=== PATIENT | male | born 1980 | race Caucasian/White ===

== ENCOUNTER 2018-12-07 14:43 | Emergency (ER) | payer OTHER ==
[~2018-12-07] VITALS: Ht 188 cm; Wt 158.8 kg
[~2018-12-07 14:43] MED LIST: ALBU90OI INH; ATEN25 PO; BENZ100A PO; ESCI20 PO; Hydroxyzine HCl50 MG PO; IBUP800 PO; KETO10 PO; LISHYD2025 PO; PROCODE120 PO; PSEU120ER PO; Prednisone20 MG PO; Pseudoephedrine30 MG PO; SPACE CHAMBER1 EACH MC; TRAM50 PO; TRAZ100 PO; Vibramycin100 MG PO
[2018-12-07 15:38] LABS: BASOPHILS ABSOLUTE AUTO 0.07 K/mm3 (0.00-0.23); BASOPHILS PERCENT AUTO 1 % (0-2); EOSINOPHILS ABSOLUTE AUTO 0.17 K/mm3 (0.00-0.68); EOSINOPHILS PERCENT AUTO 1 % (0-6); Hematocrit 42.3 % (37.0-53.0); Hemoglobin 13.5 g/dL (13.5-17.5); IMMATURE GRAN ABSOLUTE AUTO 0.09 K/mm3 (0.00-0.10); IMMATURE GRAN PERCENT AUTO 1 % (0-1); LYMPHOCYTES ABSOLUTE AUTO 2.69 K/mm3 (0.84-5.20); LYMPHOCYTES PERCENT AUTO 19 % (21-46); MONOCYTES ABSOLUTE AUTO 1.25 K/mm3 (0.16-1.47); MONOCYTES PERCENT AUTO 9 % (4-13); Mean Corpuscular HGB 28.5 pg (26.0-34.0); Mean Corpuscular HGB Conc 31.9 g/dL (31.5-36.5); Mean Corpuscular Volume 89 fL (80-100); Mean Platelet Volume 9.3 fL (9.1-12.4); NEUTROPHILS ABSOLUTE AUTO 9.65 K/mm3 (1.96-9.15); NEUTROPHILS PERCENT AUTO 69 % (41-73); Platelet Count 268 K/mm3 (150-400); RDW Coefficient Variation 13.7 % (11.7-14.2); Red Blood Cell Count 4.74 M/mm3 (4.30-5.90); White Blood Cell Count 13.92 K/mm3 (4.00-11.30)
[2018-12-07 16:06] LABS: Alanine Aminotransfer (ALT/SGP 30 U/L (12-78); Albumin, Blood 3.3 g/dL (3.4-5.0); Albumin/Globulin Ratio 1.1 (0.8-1.8); Alk Phos 92 U/L (50-136); Anion Gap 6 mmol/L (6-16); Aspartate Aminotrans (AST/SGOT 10 U/L (12-37); Bilirubin, Total 0.5 mg/dL (0.1-1.0); Blood Urea Nitrogen 14 mg/dL (8-24); Bun/Creatinine Ratio 17.5 (12.0-20.0); CO2, Blood 30 mmol/L (21-32); Calcium, Blood 8.5 mg/dL (8.5-10.1); Chloride, Blood 99 mmol/L (98-108); Globulin, Blood 3.1 g/dL (2.2-4.0); Glomerular Filtration Rate >60 (60-); Glucose, Blood 113 mg/dL (70-99); Potassium, Blood 3.7 mmol/L (3.5-5.5); Sodium, Blood 135 mmol/L (136-145); Total Protein, Blood 6.4 g/dL (6.4-8.2); Troponin I <0.015 ng/mL (0.000-0.040)
[2018-12-07] MEDS ORDERED: IBUP800 PO (16:22)
[2018-12-07] MEDS ORDERED: ALBU90OI INH (16:54)
[2018-12-07] MEDS ORDERED: DOXY100 PO (16:54)
[2018-12-07] MEDS ORDERED: BENZ100A PO (16:54)
== END 2018-12-07 17:45 | disposition home or self-care (01) ==
LOC: ER 14:43
PROVIDERS: Physician Assistant
DX: J18.1 Lobar pneumonia, unspecified organism (principal); I10 Essential (primary) hypertension; F41.9 Anxiety disorder, unspecified; F17.210 Nicotine dependence, cigarettes, uncomplicated; Z88.0 Allergy status to penicillin; Z79.899 Other long term (current) drug therapy
CPT/HCPCS: 36415; 71046; 80053; 84484; 85025; 93005; 93010; 94640; 96365; 96375; 99284-25; J0696; J2930

== ENCOUNTER 2019-01-03 23:59 | Emergency (ER) | payer OTHER ==
[~2019-01-03] VITALS: Ht 188 cm; Wt 170.0 kg
[~2019-01-03 23:59] MED LIST changes: +DOXY100 PO
[2019-01-04 00:42] LABS: BASOPHILS ABSOLUTE AUTO 0.06 K/mm3 (0.00-0.23); BASOPHILS PERCENT AUTO 1 % (0-2); EOSINOPHILS ABSOLUTE AUTO 0.31 K/mm3 (0.00-0.68); EOSINOPHILS PERCENT AUTO 3 % (0-6); Hemoglobin 13.9 g/dL (13.5-17.5); IMMATURE GRAN PERCENT AUTO 1 % (0-1); LYMPHOCYTES ABSOLUTE AUTO 2.19 K/mm3 (0.84-5.20); LYMPHOCYTES PERCENT AUTO 19 % (21-46); MONOCYTES ABSOLUTE AUTO 1.13 K/mm3 (0.16-1.47); MONOCYTES PERCENT AUTO 10 % (4-13); Mean Corpuscular HGB 28.4 pg (26.0-34.0); Mean Corpuscular HGB Conc 30.9 g/dL (31.5-36.5); Mean Corpuscular Volume 92 fL (80-100); Mean Platelet Volume 9.1 fL (9.1-12.4); NEUTROPHILS ABSOLUTE AUTO 7.95 K/mm3 (1.96-9.15); NEUTROPHILS PERCENT AUTO 68 % (41-73); Platelet Count 254 K/mm3 (150-400); RDW Coefficient Variation 13.7 % (11.7-14.2); RDW Standard Deviation 47.2 fL (35.1-46.3); White Blood Cell Count 11.74 K/mm3 (4.00-11.30)
[2019-01-04 01:02] LABS: Troponin I <0.015 ng/mL (0.000-0.040)
[2019-01-04 01:03] LABS: Alanine Aminotransfer (ALT/SGP 30 U/L (12-78); Albumin, Blood 3.6 g/dL (3.4-5.0); Albumin/Globulin Ratio 1.2 (0.8-1.8); Alk Phos 110 U/L (50-136); Anion Gap 2 mmol/L (6-16); Aspartate Aminotrans (AST/SGOT 10 U/L (12-37); Bilirubin, Total 0.5 mg/dL (0.1-1.0); Blood Urea Nitrogen 14 mg/dL (8-24); Bun/Creatinine Ratio 18.5 (12.0-20.0); CO2, Blood 37 mmol/L (21-32); Calcium, Blood 8.6 mg/dL (8.5-10.1); Chloride, Blood 96 mmol/L (98-108); Creatinine, Blood 0.76 mg/dL (0.60-1.20); Glomerular Filtration Rate >60 (60-); Glucose, Blood 103 mg/dL (70-99); Potassium, Blood 3.8 mmol/L (3.5-5.5); Sodium, Blood 135 mmol/L (136-145); Total Protein, Blood 6.6 g/dL (6.4-8.2)
[2019-01-04] MEDS ORDERED: LEVO750 PO (01:10)
[2019-01-04] MEDS ORDERED: ERYT1OIN BOTHEYES (01:10)
== END 2019-01-04 01:39 | disposition home or self-care (01) ==
LOC: ER 23:59
PROVIDERS: Physician Assistant
DX: J18.9 Pneumonia, unspecified organism (principal); H10.9 Unspecified conjunctivitis; I10 Essential (primary) hypertension; F17.200 Nicotine dependence, unspecified, uncomplicated
CPT/HCPCS: 36415; 71045; 80053; 84484; 85025; 93005; 93010; 94640; 96374; 99285-25; J2930

== ENCOUNTER → 2020-08-12 | Outpatient (CLI) | payer OTHER ==
[~2020-08-12] MED LIST changes: +ABILIFY MYCITE5 M1 PO; +AMLO10 PO; +CYCL10 PO; +DICL75ER PO; +ERYT1OIN BOTHEYES; +IPRAT-ALBUT 0.5-3 ML NEB; +LEVO750 PO; -LISHYD2025 PO; +METO50 PO; +PRED20 PO; +ZESTORETIC 20-1 EAC2 PO
[2020-08-12 20:10] LABS: BASOPHILS ABSOLUTE AUTO 0.11 K/mm3 (0.00-0.23); BASOPHILS PERCENT AUTO 1 % (0-2); EOSINOPHILS ABSOLUTE AUTO 0.26 K/mm3 (0.00-0.68); EOSINOPHILS PERCENT AUTO 2 % (0-6); Hematocrit 46.8 % (37.0-53.0); Hemoglobin 14.3 g/dL (13.5-17.5); IMMATURE GRAN PERCENT AUTO 1 % (0-1); LYMPHOCYTES ABSOLUTE AUTO 3.02 K/mm3 (0.84-5.20); LYMPHOCYTES PERCENT AUTO 28 % (21-46); MONOCYTES ABSOLUTE AUTO 0.68 K/mm3 (0.16-1.47); MONOCYTES PERCENT AUTO 6 % (4-13); Mean Corpuscular HGB 28.4 pg (26.0-34.0); Mean Corpuscular HGB Conc 30.6 g/dL (31.5-36.5); Mean Corpuscular Volume 93 fL (80-100); Mean Platelet Volume 10.1 fL (9.1-12.4); NEUTROPHILS ABSOLUTE AUTO 6.51 K/mm3 (1.96-9.15); NEUTROPHILS PERCENT AUTO 61 % (41-73); Platelet Count 221 K/mm3 (150-400); RDW Coefficient Variation 13.8 % (11.7-14.2); RDW Standard Deviation 47.4 fL (35.1-46.3); Red Blood Cell Count 5.03 M/mm3 (4.30-5.90); White Blood Cell Count 10.68 K/mm3 (4.00-11.30)
[2020-08-12 20:27] LABS: Alanine Aminotransfer (ALT/SGP 40 U/L (12-78); Albumin, Blood 3.6 g/dL (3.4-5.0); Albumin/Globulin Ratio 1.3 (0.8-1.8); Alk Phos 118 U/L (50-136); Anion Gap 5 mmol/L (6-16); Aspartate Aminotrans (AST/SGOT 14 U/L (12-37); Bilirubin, Total 0.2 mg/dL (0.1-1.0); Blood Urea Nitrogen 19 mg/dL (8-24); Bun/Creatinine Ratio 25.4 (12.0-20.0); CHOL/HDL RATIO 2.7; CO2, Blood 34 mmol/L (21-32); Calcium, Blood 9.2 mg/dL (8.5-10.1); Chloride, Blood 100 mmol/L (98-108); Cholesterol 149 mg/dL (50-200); Creatinine, Blood 0.75 mg/dL (0.60-1.20); Globulin, Blood 2.7 g/dL (2.2-4.0); Glomerular Filtration Rate >60 (60-); Glucose, Blood 131 mg/dL (70-99); HDL Cholesterol 55 mg/dL (>39); LDL/HDL RATIO 1.3; Low Density Lipoprotein Chol 74 mg/dL (0-110); Potassium, Blood 4.1 mmol/L (3.5-5.5); Sodium, Blood 139 mmol/L (136-145); Total Protein, Blood 6.3 g/dL (6.4-8.2); Triglycerides 99 mg/dL (30-160); Very Low Density Lipoprot Chol 19 mg/dL (6-32)
== END | disposition home or self-care (01) ==
LOC: LAB SHORT 19:19 → LAB 19:19
PROVIDERS: Family Medicine
DX: I10 Essential (primary) hypertension (principal); R73.03 Prediabetes
CPT/HCPCS: 80053; 80061; 83036; 85025

== ENCOUNTER 2020-10-18 17:52 | Inpatient (IN) | payer OTHER ==
[~2020-10-18] VITALS: Ht 190.5 cm; Wt 176.2 kg
[~2020-10-18 17:52] MED LIST changes: -ABILIFY MYCITE5 M1 PO; -AMLO10 PO; -CYCL10 PO; -DICL75ER PO; -ESCI20 PO; -IPRAT-ALBUT 0.5-3 ML NEB; -METO50 PO; -PRED20 PO; -ZESTORETIC 20-1 EAC2 PO
[2020-10-18 18:25] LABS: PCO2 Arterial 68.5 mmHg (35-45); PO2 Arterial 47.7 mmHg (80-100); pH Blood Arterial 7.33 (7.35-7.45)
[2020-10-18 19:03] LABS: Influenza A, PCR NEGATIVE (NEGATIVE); Influenza B, PCR NEGATIVE (NEGATIVE); Resp Syncytial Virus, PCR NEGATIVE (NEGATIVE); SARS-Cov-2 (COVID-19) PCR, MMC NEGATIVE (NEGATIVE)
[2020-10-18 19:17] LABS: BASOPHILS ABSOLUTE AUTO 0.05 K/mm3 (0.00-0.23); BASOPHILS PERCENT AUTO 1 % (0-2); EOSINOPHILS ABSOLUTE AUTO 0.26 K/mm3 (0.00-0.68); EOSINOPHILS PERCENT AUTO 3 % (0-6); Hematocrit 47.1 % (37.0-53.0); Hemoglobin 14.5 g/dL (13.5-17.5); IMMATURE GRAN ABSOLUTE AUTO 0.08 K/mm3 (0.00-0.10); IMMATURE GRAN PERCENT AUTO 1 % (0-1); LYMPHOCYTES ABSOLUTE AUTO 1.49 K/mm3 (0.84-5.20); LYMPHOCYTES PERCENT AUTO 14 % (21-46); MONOCYTES ABSOLUTE AUTO 0.83 K/mm3 (0.16-1.47); MONOCYTES PERCENT AUTO 8 % (4-13); Mean Corpuscular HGB 28.2 pg (26.0-34.0); Mean Corpuscular HGB Conc 30.8 g/dL (31.5-36.5); Mean Corpuscular Volume 92 fL (80-100); NEUTROPHILS ABSOLUTE AUTO 7.86 K/mm3 (1.96-9.15); NEUTROPHILS PERCENT AUTO 74 % (41-73); Platelet Count 212 K/mm3 (150-400); RDW Coefficient Variation 13.7 % (11.7-14.2); RDW Standard Deviation 46.9 fL (35.1-46.3); Red Blood Cell Count 5.14 M/mm3 (4.30-5.90); White Blood Cell Count 10.57 K/mm3 (4.00-11.30)
[2020-10-18 19:32] LABS: International Normalized Ratio 1.02; Prothrombin Time Results 10.9 Sec (9.7-11.5)
[2020-10-18 19:36] LABS: Alanine Aminotransfer (ALT/SGP 42 U/L (12-78); Albumin/Globulin Ratio 1.3 (0.8-1.8); Alk Phos 141 U/L (50-136); Anion Gap 4 mmol/L (6-16); Aspartate Aminotrans (AST/SGOT 22 U/L (12-37); Bilirubin, Total 0.6 mg/dL (0.1-1.0); Blood Urea Nitrogen 12 mg/dL (8-24); CO2, Blood 35 mmol/L (21-32); Calcium, Blood 8.9 mg/dL (8.5-10.1); Chloride, Blood 96 mmol/L (98-108); Creatinine, Blood 0.71 mg/dL (0.60-1.20); Glomerular Filtration Rate >60 (60-); Glucose, Blood 124 mg/dL (70-99); Sodium, Blood 135 mmol/L (136-145); Troponin I <0.015 ng/mL (0.000-0.040)
[2020-10-18 20:08] LABS: Source, Urine Catheter
[2020-10-18 20:18] LABS: Appearance, Urine Clear (Clear); Bilirubin, Urine Neg (Neg); Blood, Urine Neg (Neg); Color, Urine Yellow (P-Yellow); Glucose Qualitative, Urine Neg (Neg); Ketones, Urine Neg (Neg); Leukocyte Esterase, Urine Neg (Neg); Nitrite, Urine Neg (Neg); Protein, Urine Neg (Neg); Urobilinogen, Urine NORM (Normal)
[2020-10-18] MEDS ORDERED: ZESTORETIC 20-1 EAC2 PO (20:40)
[2020-10-18] MEDS ORDERED: ESCI20 PO (20:41)
[2020-10-18] MEDS ORDERED: ALBU90OI INH (20:42)
[2020-10-18] MEDS ORDERED: CYCL10 PO (20:43)
[2020-10-18] MEDS ORDERED: METO50 PO (20:44)
[2020-10-18] MEDS ORDERED: DICL75ER PO (20:45)
[2020-10-18] MEDS ORDERED: ABILIFY MYCITE5 M1 PO (20:56)
[2020-10-18] MEDS ORDERED: IPRAT-ALBUT 0.5-3 ML NEB (20:56)
[2020-10-19 03:42] LABS: BASOPHILS ABSOLUTE AUTO 0.04 K/mm3 (0.00-0.23); BASOPHILS PERCENT AUTO 0 % (0-2); EOSINOPHILS ABSOLUTE AUTO 0.01 K/mm3 (0.00-0.68); EOSINOPHILS PERCENT AUTO 0 % (0-6); Hematocrit 45.1 % (37.0-53.0); IMMATURE GRAN ABSOLUTE AUTO 0.11 K/mm3 (0.00-0.10); IMMATURE GRAN PERCENT AUTO 1 % (0-1); LYMPHOCYTES ABSOLUTE AUTO 0.73 K/mm3 (0.84-5.20); LYMPHOCYTES PERCENT AUTO 7 % (21-46); MONOCYTES ABSOLUTE AUTO 0.21 K/mm3 (0.16-1.47); MONOCYTES PERCENT AUTO 2 % (4-13); Mean Corpuscular Volume 93 fL (80-100); Mean Platelet Volume 9.9 fL (9.1-12.4); NEUTROPHILS PERCENT AUTO 90 % (41-73); Platelet Count 188 K/mm3 (150-400); RDW Coefficient Variation 13.7 % (11.7-14.2); RDW Standard Deviation 46.7 fL (35.1-46.3); Red Blood Cell Count 4.83 M/mm3 (4.30-5.90)
[2020-10-19 04:01] LABS: Anion Gap 2 mmol/L (6-16); Blood Urea Nitrogen 12 mg/dL (8-24); Bun/Creatinine Ratio 20.9 (12.0-20.0); CO2, Blood 35 mmol/L (21-32); Calcium, Blood 8.5 mg/dL (8.5-10.1); Chloride, Blood 97 mmol/L (98-108); Creatinine, Blood 0.57 mg/dL (0.60-1.20); Glomerular Filtration Rate >60 (60-); Glucose, Blood 238 mg/dL (70-99); Potassium, Blood 4.8 mmol/L (3.5-5.5); Sodium, Blood 134 mmol/L (136-145)
[2020-10-19 05:38] LABS: PCO2 Arterial > 105 mmHg (35-45); PO2 Arterial 114 mmHg (80-100); pH Blood Arterial 7.13 (7.35-7.45)
--- NOTE | 2020-10-19 05:54 | NUR ---
CRITICAL LAB RT NOTIFIED OF CRITICAL LAB FROM ABG: C02 >105 AND Ph 7.13. CALL PLACED TO MD ALLEN. MD ALLEN W/ ORDERS TO INCREASE BIPAP SETTINGS AND REPEAT ABG IN 4 HOURS.
--- NOTE | 2020-10-19 06:00 | NUR ---
SHIFT SUMMARY UPON ARRIVAL TO UNIT, PT A&OX4. SP02>90% ON NC. PT ATTEMPTED BIPAP BUT COULD NOT TOLERATE, TOOK OFF MASK MULTIPLE TIMES. PT ALSO PULLED OFF TELEMETRY STICKERS MULTIPLE TIMES. TOWARDS END OF SHIFT, PT BECAME AND IS CURRENTLY LETHARGIC, OBTUNDED. PT PLACED ON BIPAP AND ABG DONE, RESULTING IN CRITICAL VALUES, SEE PREVIOUS NOTE. TELEMETRY READS ST, HR 100'S. PT USED URINAL AT BEDSIDE AND UP TO BSC SBA TO ATTEMPT A BM UNSUCCESSFULLY. ABX INFUSED THIS SHIFT. CALL LIGHT IN REACH. BED ALARM ON. WILL GIVE REPORT TO ONCOMING NURSE.
--- NOTE | 2020-10-19 07:00 | NUR ---
PT UPDATE AT APPROX 0600 PT REMOVED BIPAP, TELEMETRY CORDS, SPO2 PROBE. RN ATTEMPTED TO PLACE BIPAP MASK ON, PT PUSHED AWAY WITH HANDS, REFUSED MASK. RN ATTEMPTED TO PLACE NC ON PT. PT REMOVED NC. CALL PLACED TO RT. RT IN ROOM W/ RN. PT NOT ACKNOWLEDGING QUESTIONS. PT CONTINUED TO NOT ALLOW OXYGEN THERAPY. PT VOIDED ALL OVER BED. RT WITH RECOMMENDATION FOR ICU FOR ADEQUATE OXYGEN THERAPY. CALL PLACED TO MD ALLEN. MD ALLEN WITH ORDERS FOR ICU TRANSFER. PT TAKEN TO ICU AT APPROX 0700, REPORT GIVEN TO ICU NURSE DURING TIME OF XFER.
--- NOTE | 2020-10-19 07:41 | NUR ---
PT TRANSFERED FROM PCU TO ICU AT 0700 THIS AM. PT OBTUNDED ON N/C. PT TRANSFERED TO BED USING LIFT. BIPAP IMMEDIATELY PLACED; 17/07, SATS >90%. PT BREATHING SHALLOW PRIOR TO BIPAP BUT PULLLING TV >400 NOW. A POWERGLIDE AND PERIPHERAL IV STARTED, PT DID NOT RESPOND TO THESE. EYES OPENED BRIEFLY WHEN TIGHTENING BIPAP MASK, PT DOES NOT AROUSE OTHERWISE. DR DELGADO CONSULTED AND CALLED AT 0700. ROTHMAN CATH PLACED W/O DIFFICULTY. RESTRAINTS PLACED PT AWOKE IN PCU AND TORE OFF MASK. DR DELGADO AT BEDSIDE NOW. ABG TO BE REPEATED AT 0800. PT MAY REQUIRE INTUBATION.
[2020-10-19 08:01] LABS: Source, Urine Catheter
[2020-10-19 08:05] LABS: Appearance, Urine Clear (Clear); Bilirubin, Urine Neg (Neg); Blood, Urine 1+ (Neg); Color, Urine Yellow (P-Yellow); Glucose Qualitative, Urine Neg (Neg); Ketones, Urine Neg (Neg); Leukocyte Esterase, Urine Neg (Neg); Nitrite, Urine Neg (Neg); Protein, Urine 1+ (Neg); Specific Gravity, Urine 1.025 (1.003-1.022); Urobilinogen, Urine NORM (Normal)
[2020-10-19 08:21] LABS: White Blood Cells, Urine 0-2 /hpf (0-5)
[2020-10-19 08:22] LABS: Bacteria Rare /hpf; Red Blood Cells, Urine 0-2 /hpf (0-2); Squamous Epithelial Cells Rare /hpf (Few)
[2020-10-19 08:45] LABS: PO2 Arterial 67.3 mmHg (80-100)
[2020-10-19 08:46] LABS: PCO2 Arterial > 105 mmHg (35-45); pH Blood Arterial 7.16 (7.35-7.45)
--- NOTE | 2020-10-19 09:59 | NUR ---
REPEAT ABG CONT TO SHOW RESP FAILURE WITHOUT IMPROVEMENT. DR DELGADO INTUBATED PT AT 0915. PT WAS DIFFICULT TO INTUBATE; ER DR AT BEDSIDE TO ASSIST. VERSED AND PROPOFOL INITIALLY USED TO INTUBATED. SUCCS 200 GIVEN PER ER . PT SHORTLY INTBATED AFTER SUCCS GIVEN. ETT 8.0, INITIALLY AT 27CM, THEN ADVANCED 2CM TO 29CM POST XRAY PER DR DELGADO. OGT PLACED TO LIS. LUNGS COARSE T/O, SATS 100%. VENT AC16/550/100%/8. DARK PEREZ SPUTUM SAMPLE SENT. PROPOFOL GTT AT 50MCG, NS STARTED AT 75CC/HR.
[2020-10-19 10:24] LABS: U Amphetamine Screen Not Detected; U Barbituate Screen Not Detected; U Benzodiazapine Screen Not Detected; U Buprenorphine Screen Not Detected; U Cannabinoids Screen Not Detected; U Cocaine Screen Not Detected; U Methadone Screen Not Detected; U Methamphetamine Screen Not Detected; U Opiates Screen Not Detected; U Oxycodone Screen Not Detected; U Phencyclidine Screen Not Detected; U Propoxyphene Screen Not Detected
--- NOTE | 2020-10-19 11:34 | NUR ---
PT GIVEN FULL BEDBATH. YEAST NOTED TO ALL FOLDS. NYSTATIN ORDERED. PILLOW CASES PLACED UNDER FOLDS. BP HAD BEEN HYPERTENSIVE BUT NOW TRENDING DOWN, MAP REMAINS >65. PT'S BROTHER WHOM IS LISTED EMERGENCY CONTACT WAS UPDATED VIA PHONE.
[2020-10-19 11:47] LABS: PO2 Arterial 430 mmHg (80-100)
[2020-10-19 11:48] LABS: PCO2 Arterial 79.5 mmHg (35-45); pH Blood Arterial 7.26 (7.35-7.45)
--- NOTE | 2020-10-19 17:42 | NUR ---
PT REMAINS ON PROPOFOL AT 50MCG, VENT SETTINGS; AC16/550/60%/8. PT BREATHING RIGHT AROUND 16. VERY THICK DARK PEREZ SECRETIONS SX'D FROM ETT W EVERY TURN. LUNGS REMAINS COARSE T/O, VSS. BROTHER AT BEDSIDE AND GIVEN UPDATE.
--- NOTE | 2020-10-19 19:59 | NUR ---
PATIENT INTUBATED AND SEDATED WITH PROPOFOL 50 MCG, VENT SET AT AC 16, TV 550, PEEP 8, FIO2 60% PATIENT GRIMACING AND PULLING ON RESTRAINTS WITH ORAL CARE AND REPOSITIONING. OCCASIONALLY WIGGLING HIS FEET BACK AND FORTH. KEEPING EYES CLOSED, AND RESISTANT TO HAVING THEM OPENED FOR PUPIL CHECK. FENTANYL GIVEN TO HELP PATIENT ALYCIA ETT. OG REMAINS IN PLACE WITH SMALL AMT OF BROWN/GREEN BILE IN TUBE, OG FLUSHED AND CLAMPED. ROTHMAN DRAINING HAZY YELLOW URINE WITH WHITE SEDIMENT SEEN.
--- NOTE | 2020-10-20 00:15 | NUR ---
DOCTOR SANDY NOTIFIED OF ELEVATED GLUCOSE WITH Q6 CBG. ORDER OBTAINED FOR MEDIUM SLIDING SCALE
[2020-10-20 03:39] LABS: BASOPHILS ABSOLUTE AUTO 0.01 K/mm3 (0.00-0.23); BASOPHILS PERCENT AUTO 0 % (0-2); EOSINOPHILS PERCENT AUTO 0 % (0-6); Hematocrit 40.5 % (37.0-53.0); Hemoglobin 12.5 g/dL (13.5-17.5); IMMATURE GRAN ABSOLUTE AUTO 0.09 K/mm3 (0.00-0.10); IMMATURE GRAN PERCENT AUTO 1 % (0-1); LYMPHOCYTES ABSOLUTE AUTO 0.96 K/mm3 (0.84-5.20); LYMPHOCYTES PERCENT AUTO 11 % (21-46); MONOCYTES ABSOLUTE AUTO 0.63 K/mm3 (0.16-1.47); MONOCYTES PERCENT AUTO 7 % (4-13); Mean Corpuscular HGB 28.5 pg (26.0-34.0); Mean Corpuscular HGB Conc 30.9 g/dL (31.5-36.5); Mean Corpuscular Volume 93 fL (80-100); NEUTROPHILS PERCENT AUTO 81 % (41-73); Platelet Count 202 K/mm3 (150-400); RDW Coefficient Variation 13.5 % (11.7-14.2); RDW Standard Deviation 46.3 fL (35.1-46.3); Red Blood Cell Count 4.38 M/mm3 (4.30-5.90); White Blood Cell Count 8.89 K/mm3 (4.00-11.30)
[2020-10-20 04:00] LABS: Albumin, Blood 3.1 g/dL (3.4-5.0); Anion Gap 2 mmol/L (6-16); Blood Urea Nitrogen 21 mg/dL (8-24); Bun/Creatinine Ratio 32.7 (12.0-20.0); CO2, Blood 35 mmol/L (21-32); Calcium, Blood 8.1 mg/dL (8.5-10.1); Chloride, Blood 97 mmol/L (98-108); Creatinine, Blood 0.64 mg/dL (0.60-1.20); Glomerular Filtration Rate >60 (60-); Glucose, Blood 293 mg/dL (70-99); Phosphorus, Blood 3.7 mg/dL (2.5-4.9); Potassium, Blood 4.9 mmol/L (3.5-5.5); Sodium, Blood 134 mmol/L (136-145)
--- NOTE | 2020-10-20 05:55 | NUR ---
SUMMARY PATIENT REMAINS INTUBATED AND SEDATED. NO CHANGES TO VENT SETTINGS SUCTIONING SMALL AMTS OF THICK PEREZ SPUTUM VIA ETT. COPIOUS ORAL SECRETIONS MORESO WHEN MORE AWAKE, FREQUENT ORAL SUCTIONING DONE T/O NIGHT. PROPOFOL 50 MCG CONTINUES FOR SEDATION, VERSED GIVEN ONCE FOR AGITATION AND COUGHING, MOVING ALL 4 EXTREMITIES BUT NOT FOLLOWING DIRECTIONS. FENTANYL IV GIVEN SEVERAL TIMES DURING THE NIGHT FOR GRIMACING AND INCREASED RESP. OG REMAINS IN PLACE AND CLAMPED. ROTHMAN CONTINUES TO DRAIN HAZY YELLOW URINE WITH PINK/WHITE SEDIMENT.
--- NOTE | 2020-10-20 11:04 | NUR ---
ASSUMED CARE OF PT, REPORT RCV'D FROM CORNELL MACEDO. PT INTUBATED AND SEDATED. VENT SETTINGS AC 16/550/8/50%. PROPOFOL DECREASED FROM 50 MCG/KG/MIN TO 45 MCG/KG/MIN. PT FAILS TO OPEN EYES WITH VERBAL STIMULATION, DOES NOT FOLLOW COMMANDS. FACIAL GRIMACING WITH PAINFUL STIMULI AND PT TURNS HEAD AWAY FROM ORAL CARE. BILATERAL SOFT WRIST RESTRAINTS TO PREVENT ACCIDENTAL EXTUBATION. LUNG SOUNDS COARSE WITH EXP WHEEZE. OGT CLAMPED, ORDER PLACE TO BEGIN TF. ROTHMAN PATENT AND DRAINING TO GRAVITY. SEE FULL SHIFT ASSESSMENT.
--- NOTE | 2020-10-20 18:44 | NUR ---
SHIFT SUMMARY NO ACUTE CHANGES THROUGH OUT SHIFT. PT REMAINS INTUBATED AND SEDATED. VENT SETTINGS AC 16/550/8/50%. PROPOFOL @ 40 MCG/KG/MIN. PT MOVES ALL EXTREMETIES WEAKLY, SLOWLY REACHES FOR TUBE WHEN UNRESTRAINED, FACIAL GRIMACING WITH NOXIOUS STIMULI. PT FAILS TO FOLLOW COMMANDS AT THIS TIME. LUNG SOUNDS REMAIN COARSE WITH WHEEZE, MODERATE AMOUNT OF THICK GREEN/BROWN SPUTUM FROM ETT AND RIGHT NARE. VITAL HIGH PROTEIN STARTED AT GOAL RATE OF 20 ML/HR WITH 30 ML Q4 FLUSH. 600 ML URINARY OUTPUT, URINE GREEN TINGED WITH MODERATE SEDIMENT. TMAX 99.0, ALL ADDITIONAL VSS. WILL REPORT TO ONCOMING NURSE.
--- NOTE | 2020-10-20 18:57 | NUR ---
Per admit trigger, I was tasked to meet with Mr. Mccoy to offer education about advanced care planning. He is on a vent and sedated. No family. Left AD packet on bedside table and will continue to attempt visit in coming days.
--- NOTE | 2020-10-20 20:03 | NUR ---
PATIENT REMAINS INTUBATED AND SEDATED. PROPOFOL 40 MCG, FENTANYL NEEDED. COUGHING AND REACHING UP TO ETT WHEN AWAKE. OCCASIONALLY SHAKING BOTH FEET BACK AND FORTH. NOT OPENING EYES AND NOT FOLLOWING DIRECTIONS. ETT IN PLACE WITH VENT SET AT AC 16, TV 550, PEEP 8, FIO2 50% SUCTIONING THICK CREAMY LOOKING SPUTUM VIA ETT. OG IN PLACE WITH TUBE FEEDING AT GOAL RATE OF 20 CC/HR WITH VITAL HP.
[2020-10-21 04:27] LABS: BASOPHILS ABSOLUTE AUTO 0.02 K/mm3 (0.00-0.23); BASOPHILS PERCENT AUTO 0 % (0-2); EOSINOPHILS ABSOLUTE AUTO 0.08 K/mm3 (0.00-0.68); EOSINOPHILS PERCENT AUTO 1 % (0-6); Hematocrit 41.7 % (37.0-53.0); Hemoglobin 12.7 g/dL (13.5-17.5); IMMATURE GRAN ABSOLUTE AUTO 0.12 K/mm3 (0.00-0.10); IMMATURE GRAN PERCENT AUTO 1 % (0-1); LYMPHOCYTES ABSOLUTE AUTO 1.12 K/mm3 (0.84-5.20); LYMPHOCYTES PERCENT AUTO 11 % (21-46); MONOCYTES ABSOLUTE AUTO 0.65 K/mm3 (0.16-1.47); MONOCYTES PERCENT AUTO 7 % (4-13); Mean Corpuscular HGB 28.2 pg (26.0-34.0); Mean Corpuscular HGB Conc 30.5 g/dL (31.5-36.5); Mean Corpuscular Volume 93 fL (80-100); Mean Platelet Volume 10.1 fL (9.1-12.4); NEUTROPHILS ABSOLUTE AUTO 8.05 K/mm3 (1.96-9.15); NEUTROPHILS PERCENT AUTO 80 % (41-73); NRBC ABSOLUTE 0.02 K/mm3 (0.00-0.02); NRBC Auto 0.2 /100 WBC (0.0-0.2); Platelet Count 239 K/mm3 (150-400); RDW Standard Deviation 48.1 fL (35.1-46.3); Red Blood Cell Count 4.51 M/mm3 (4.30-5.90); White Blood Cell Count 10.04 K/mm3 (4.00-11.30)
[2020-10-21 04:43] LABS: Albumin, Blood 3.1 g/dL (3.4-5.0); Anion Gap 3 mmol/L (6-16); Blood Urea Nitrogen 29 mg/dL (8-24); Bun/Creatinine Ratio 45.5 (12.0-20.0); CO2, Blood 34 mmol/L (21-32); Calcium, Blood 8.2 mg/dL (8.5-10.1); Chloride, Blood 98 mmol/L (98-108); Creatinine, Blood 0.64 mg/dL (0.60-1.20); Glomerular Filtration Rate >60 (60-); Glucose, Blood 298 mg/dL (70-99); Phosphorus, Blood 3.7 mg/dL (2.5-4.9); Potassium, Blood 4.6 mmol/L (3.5-5.5); Sodium, Blood 135 mmol/L (136-145); Triglycerides 181 mg/dL (30-160)
--- NOTE | 2020-10-21 05:00 | NUR ---
AFTER BED BATH COMPLETE, ROTHMAN BAG CHANGED DUE TO SEDIMENT CLINGING TO LINING OF THE BAG, AND TO MAKE IT EASIER TO EVALUATE THE URINE.
--- NOTE | 2020-10-21 06:49 | NUR ---
SUMMARY PATIENT REMAINS INTUBATED AND SEDATED. PROPOFOL TITRATED TO 45 MCG, FENTANYL IV GIVEN NEEDED T/O NIGHT TO HELP PATIENT ALYCIA VENT. VENT SET AT AC 16, TV 550, PEEP 8, FIO2 50% SUCTIONING THICK PEREZ SPUTUM VIA ETT. PATIENT HAVING LARGE PEREZ NASAL SECRETION ONCE DURING THE NIGHT. OG WITH VITAL HP AT GOAL RATE 20 CC/HR WITH MOD AMT OF RESIDUALS T/O NIGHT.
--- NOTE | 2020-10-21 08:30 | NUR ---
ASSESSMENT- PT SEDATED WTIH PROPOFOL AT 45 MCG/KG/MIN, INCREASED TO 50 MCG/KG/MIN FOR RESTLESSNESS, ATTEMPTING TO PULL AT TUBES. EXPLAINED PLAN OF CARE. TURNED AND LINEN CHANGE DONE, REPOSITIONED FOR COMFORT. NSR, BP STABLE. LEFT ARM POWER GLIDE DI, PIV X 2 INTACT. ABDOMEN LARGE, OBESE, SOFT. TUBE FEEDING VITAL HIGH PROTEIN AT 20 CC/HR, RESIDUAL 25 CC REPLACED. UO ADEQUATE VIA ROTHMAN. POWDER TO SKIN FOLDS. BILATERAL WRIST RESTRAINTS FOR SAFETY, EXTUBATION RISK. RODRIGUEZ.
--- NOTE | 2020-10-21 10:54 | NUR ---
PT REACHING FOR TUBES, RESTLESS. REPOSITIONED, PROPOFOL INCREASED TO 60 MCG/KG/MIN WITH IMPROVEMENT
--- NOTE | 2020-10-21 11:57 | NUR ---
PT AGITATED, REPOSITIONED. RX WITH FENTANYL AND PROPOFOL INCREASED FOR SEDATION. DR. SHAVONNE GORE-UPDATED. NSR. BP STABLE. TUBE FEED RESIDUAL 125 CC-REPLACED.
--- NOTE | 2020-10-21 13:08 | NUR ---
PT SEDATED, CALM, TOLERATING VENT
--- NOTE | 2020-10-21 16:10 | NUR ---
VSS. BEDSIDE ECHO BEING DONE. REPOSITIONED, RX WITH FENTANYL FOR GRIMACING WITH IMPROVEMENT
--- NOTE | 2020-10-21 17:16 | NUR ---
Echocardiogram using 0.60ml of Definity contrast performed by Jacinta Varner under my supervision.
--- NOTE | 2020-10-21 18:30 | NUR ---
Spiritual care note: Tried again today to meet with Mr. Mccoy and speak to im about advanced care planning. He remains unresponsive and ventilated. No family presnt throughout visiting hours.
--- NOTE | 2020-10-21 18:45 | NUR ---
REMAINS ON VENT WITHOUT PROBLEMS. SEDATED WITH PROPOFOL AT 55 MCG/KG/MIN. VSS. REPOSITIONED. TOLERATING TUBE FEEDINGS. NO BM. PIV X 2 INTACT, POWER GLIDE INTACT. UO GOOD VIA ROTHMAN. BILATERAL WRIST RESTRAINTS-EXTUBATION RISK. NSR.
--- NOTE | 2020-10-21 19:45 | NUR ---
PATIENT REMAINS INTUBATED AND SEDATED, PROPOFOL 55 MCG. VENT SET AT AC 16, TV 550, PEEP 8, FIO2 50% WHEN AWAKE COUGHING AND GAGGING ON TUBE, REACHING UP TO ETT WITH BOTH HANDS. LARGE AMT OF PEREZ/YELLOW NASAL SECRETIONS, DEVELOPED BLOODY NOSE TO RIGHT TOVAR WITH SUCTIONING THE NASAL SECRETIONS. OG IN PLACE WITH VITAL HP AT GOAL RATE OF 20 CC/HR
[2020-10-22 05:07] LABS: BASOPHILS ABSOLUTE AUTO 0.02 K/mm3 (0.00-0.23); BASOPHILS PERCENT AUTO 0 % (0-2); EOSINOPHILS PERCENT AUTO 0 % (0-6); Hematocrit 41.2 % (37.0-53.0); Hemoglobin 12.6 g/dL (13.5-17.5); IMMATURE GRAN ABSOLUTE AUTO 0.11 K/mm3 (0.00-0.10); IMMATURE GRAN PERCENT AUTO 1 % (0-1); LYMPHOCYTES ABSOLUTE AUTO 1.25 K/mm3 (0.84-5.20); LYMPHOCYTES PERCENT AUTO 15 % (21-46); MONOCYTES ABSOLUTE AUTO 0.74 K/mm3 (0.16-1.47); MONOCYTES PERCENT AUTO 9 % (4-13); Mean Corpuscular HGB 27.9 pg (26.0-34.0); Mean Corpuscular HGB Conc 30.6 g/dL (31.5-36.5); Mean Corpuscular Volume 91 fL (80-100); Mean Platelet Volume 9.7 fL (9.1-12.4); NEUTROPHILS ABSOLUTE AUTO 6.18 K/mm3 (1.96-9.15); NEUTROPHILS PERCENT AUTO 75 % (41-73); Platelet Count 227 K/mm3 (150-400); RDW Coefficient Variation 13.9 % (11.7-14.2); RDW Standard Deviation 47.3 fL (35.1-46.3); Red Blood Cell Count 4.52 M/mm3 (4.30-5.90)
[2020-10-22 05:19] LABS: PCO2 Arterial 59.5 mmHg (35-45); pH Blood Arterial 7.41 (7.35-7.45)
[2020-10-22 05:40] LABS: Albumin, Blood 3.1 g/dL (3.4-5.0); Anion Gap 2 mmol/L (6-16); Blood Urea Nitrogen 28 mg/dL (8-24); Bun/Creatinine Ratio 53.3 (12.0-20.0); CO2, Blood 34 mmol/L (21-32); Calcium, Blood 7.9 mg/dL (8.5-10.1); Chloride, Blood 97 mmol/L (98-108); Creatinine, Blood 0.53 mg/dL (0.60-1.20); Glomerular Filtration Rate >60 (60-); Glucose, Blood 327 mg/dL (70-99); Phosphorus, Blood 3.8 mg/dL (2.5-4.9); Sodium, Blood 133 mmol/L (136-145)
--- NOTE | 2020-10-22 06:30 | NUR ---
SUMMARY PATIENT REMAINS INTUBATED AND SEDATED WITH PROPOFOL 50 MCG, AND FENTANYL NEEDED. VENT AC 16, TV 550, PEEP 8, FIO2 50% SUCTIONING THICK PEREZ SPUTUM VIA ETT AND RIGHT NOSTRIL. SMALL NOSE BLEED TWICE DURING THE NIGHT. OG WITH TUBE FEEDING VITAL HP AT GOAL RATE OF 20 CC/HR WITH APROX 100 CC OF RESIDUAL. WHEN AWAKE MOVES ALL EXTREMITIES BUT CONTINUES TO NOT FOLLOW DIRECTIONS.
--- NOTE | 2020-10-22 08:55 | NUR ---
CARE OF PT ASSUMED AT 0700. PT SEDATED ON PROPFOL AT 50MCG FOR MECH VENT. PT RESTFUL AND SLEEPING, GRIMACES TO NOXIOUS STIMULI, COUGHS W SUCTION. DARK PEREZ SECRETIONS FROM ETT. PT W SCATTERED WHEEZES AND COARSE T/O. SATS >92%: AC16/550/50%/8. DR HARRIS IN THIS AM, PT TO RECEIVED ADDITIONAL INSULIN Q6 WITH AN INCREASE IN LONG ACTING INSULIN. 120CC RESIDUAL.
--- NOTE | 2020-10-22 10:13 | NUR ---
PROPOFOL OFF FOR 2MIN; PT WIDE AWAKE, COUGHING ON VENT W HIGH PEAK PRESSURES. PT ABLE TO FOLLOW COMMANDS. NODS YES TO PAIN. PROPOFOL RESUMED. FENT 100MCG GIVEN TO PT.
--- NOTE | 2020-10-22 10:26 | NUR ---
DR FLANAGAN IN TO SEE PT; PT TO BE DIURESED. FULL UPDATE GIVEN
--- NOTE | 2020-10-22 11:26 | NUR ---
PT WILL NOT RECEIVE DIURETICS PER DR FLANAGAN D/T ECHO RESULTS; LOPRESSOR TO BE INCREASED.
--- NOTE | 2020-10-22 12:23 | NUR ---
NO CHNAGES FROM PRIOR ASSESSMENT
--- NOTE | 2020-10-22 14:00 | NUR ---
PT COUGHING ON VENT, EYES OPEN, GRIMACING. PT NODS YES TO PAIN; FENT 100MCG GIVEN.
--- NOTE | 2020-10-22 15:55 | NUR ---
PT WOKE UP VERY AGITATED, UNABLE TO REDIRECT, UNABLE TO FOLLOW COMMANDS, REACHING FORCFULLY TOWARDS ETT. ATIVAN 1MG IVP GIVEN. PROPOFOL INCREASED TO 60MCG
--- NOTE | 2020-10-22 18:00 | NUR ---
BLOOD SUGARS >300 DESPITE INCREASE IN SQ INSULIN. DR FLANAGAN NOTIFIED. INSULIN GTT TO BE STARTED.
--- NOTE | 2020-10-22 19:30 | NUR ---
ASSUMPTION OF CARE RECEIVED REPORT FROM MARGUERITE SARABIA AND ASSUMED CARE OF PATIENT. PT INTUBATED, SEDATED. TKO NS, PROPOFOL AT 60MCG. TUBE FEED RUNNING AT 20. ROTHMAN CATHETER PATENT AND DRAINING. VITALS STABLE.
[2020-10-23 04:22] LABS: BASOPHILS ABSOLUTE AUTO 0.01 K/mm3 (0.00-0.23); BASOPHILS PERCENT AUTO 0 % (0-2); EOSINOPHILS PERCENT AUTO 0 % (0-6); Hematocrit 42.5 % (37.0-53.0); Hemoglobin 13.5 g/dL (13.5-17.5); IMMATURE GRAN ABSOLUTE AUTO 0.17 K/mm3 (0.00-0.10); IMMATURE GRAN PERCENT AUTO 2 % (0-1); LYMPHOCYTES ABSOLUTE AUTO 1.46 K/mm3 (0.84-5.20); LYMPHOCYTES PERCENT AUTO 16 % (21-46); MONOCYTES ABSOLUTE AUTO 0.74 K/mm3 (0.16-1.47); MONOCYTES PERCENT AUTO 8 % (4-13); Mean Corpuscular HGB 28.4 pg (26.0-34.0); Mean Corpuscular HGB Conc 31.8 g/dL (31.5-36.5); Mean Corpuscular Volume 89 fL (80-100); Mean Platelet Volume 9.6 fL (9.1-12.4); NEUTROPHILS ABSOLUTE AUTO 6.98 K/mm3 (1.96-9.15); NEUTROPHILS PERCENT AUTO 75 % (41-73); Platelet Count 227 K/mm3 (150-400); RDW Coefficient Variation 13.5 % (11.7-14.2); RDW Standard Deviation 44.4 fL (35.1-46.3); Red Blood Cell Count 4.76 M/mm3 (4.30-5.90); White Blood Cell Count 9.36 K/mm3 (4.00-11.30)
[2020-10-23 04:40] LABS: Anion Gap 3 mmol/L (6-16); Blood Urea Nitrogen 27 mg/dL (8-24); Bun/Creatinine Ratio 59.5 (12.0-20.0); CO2, Blood 35 mmol/L (21-32); Calcium, Blood 8.3 mg/dL (8.5-10.1); Chloride, Blood 96 mmol/L (98-108); Creatinine, Blood 0.45 mg/dL (0.60-1.20); Glomerular Filtration Rate >60 (60-); Glucose, Blood 340 mg/dL (70-99); Potassium, Blood 4.5 mmol/L (3.5-5.5); Sodium, Blood 134 mmol/L (136-145)
[2020-10-23 05:10] LABS: PCO2 Arterial 50.7 mmHg (35-45); PO2 Arterial 55.6 mmHg (80-100); pH Blood Arterial 7.46 (7.35-7.45)
--- NOTE | 2020-10-23 06:20 | NUR ---
SHIFT SUMMARY PT REMAINS INTUBATED AND SEDATED. INSULIN DRIP STARTED AND TITRATED CHARTED. CURRENT INSULIN RATE AT 9 UNITS/HR. PROPOFOL RUNNING AT 65 MCG. PT HYPERTENSIVE, HYDRALAZINE GIVEN CHARTED. FENTANYL GIVEN SEDATION ADJUNCT. PT HAS BLOODY SECRETIONS COMING FROM LEFT NARE. CURRENT VENT SETTING AC 16, TV 550, PEEP 8, FIO2 48%. LABS REVIEWED, NO CRITIAL RESULTS OR INTERVENTIONS AT THIS TIME.
--- NOTE | 2020-10-23 07:45 | NUR ---
CARE OF PT ASSUMED AT 0700. PT SEDATED ON PROPOFOL AT [facility]G [facility]. AC16/550/48%/8. PT HAS SCATTERED WHEEZES TO LEFT SIDE, IMPROVED FROM YESTERDAY. INSULIN GTT IS AT 10UNITS, LAST BS 290 FROM 322.
--- NOTE | 2020-10-23 09:14 | NUR ---
PT WOKE UP AGITATED DURING TURN, DID NOT FOLLOW DIRECTIONS, REACHING STRONGLY FOR ETT. ATIVAN 1MG, PT STILL NEEDED TO BE RESTRAINED FROM REACHING FOR ETT DURING TURN AFTER ATIVAN GIVEN. INSULIN GTT INCREASED TO 11UNITS/HR. PT TOLERATING TUBE FEEDING W 5CC RESIDUAL.
--- NOTE | 2020-10-23 13:47 | NUR ---
PROPOFOL REMAINS AT 65MCG, PT HAS REQUIRED BOTH ATIVAN AND FENT FOR SEDATION. PICC LINE PLACED TO TREVOR. INSULIN GTT INCREASED TO 13UNITS/HR. DR FLANAGAN GIVEN FULL UPDATE. NORVASC STARTED FOR HTN.
--- NOTE | 2020-10-23 14:47 | NUR ---
HYDRALAZINE 20MG GIVEN FOR HTN. PRECEDEX GTT ORDERED BY DR FLANAGAN TO HELP WITH WEANING IN THIS AM.
--- NOTE | 2020-10-23 17:52 | NUR ---
PT REMAINS INTUBATED ON PROPOFOL AT 65MCG. PT TO HAVE WEANING TRIAL IN AM W PRECEDEX GTT FOR ANXIETY. INSULIN GTT AT 13UNITS/HR W BS ~LOW 200'S. PT TOLERATED TUBE FEEDING WELL TODAY. PT REQUIRED TWO DOSES OF FENT AND TWO DOSES OF ATIVAN THIS SHIFT FOR SEDATION. LUNGS IMPROVED FROM YESTERDAY. FIO2 HAS BEEN TITRATED DOWN TO 40%.
--- NOTE | 2020-10-23 21:00 | NUR ---
ASSUMPTION OF CARE PT INTUBATED AND SEDATED, VENT SET TO AC 16/550 PEEP 8 FIO2 40%, COPIOUS SECRETIONS FROM ETT. PROPOFOL INFUSING @ 65mcg/kg/min, PT GRIMACING, COUGHING THE VENT AND PULLING AT RESTRAINTS AT TIME, PRN FENTANYL AND ATIVAN ADMINISTERED, SEE MAR, PT DOES NOT OPEN EYES OR FOLLOW COMMANDS. MONITOR SHOWS SINUS RHYTHM, HR 80'S, BP STABLE. INSULIN GTT INFUSING PER PICC TO TREVOR, SEE FLOWSHEET FOR RATES AND TITRATIONS. OGT IN PLACE WITH TF @ GOAL RATE OF 20ml/hr. ROTHMAN IN PLACE DRIANING CLEAR YELLOW URINE.
[2020-10-24 03:55] LABS: BASOPHILS ABSOLUTE AUTO 0.03 K/mm3 (0.00-0.23); BASOPHILS PERCENT AUTO 0 % (0-2); EOSINOPHILS PERCENT AUTO 0 % (0-6); Hematocrit 41.3 % (37.0-53.0); Hemoglobin 13.1 g/dL (13.5-17.5); IMMATURE GRAN ABSOLUTE AUTO 0.26 K/mm3 (0.00-0.10); IMMATURE GRAN PERCENT AUTO 2 % (0-1); LYMPHOCYTES ABSOLUTE AUTO 1.97 K/mm3 (0.84-5.20); LYMPHOCYTES PERCENT AUTO 15 % (21-46); MONOCYTES ABSOLUTE AUTO 1.13 K/mm3 (0.16-1.47); MONOCYTES PERCENT AUTO 8 % (4-13); Mean Corpuscular HGB 28.1 pg (26.0-34.0); Mean Corpuscular HGB Conc 31.7 g/dL (31.5-36.5); Mean Corpuscular Volume 89 fL (80-100); Mean Platelet Volume 9.4 fL (9.1-12.4); NEUTROPHILS ABSOLUTE AUTO 10.12 K/mm3 (1.96-9.15); NEUTROPHILS PERCENT AUTO 75 % (41-73); Platelet Count 226 K/mm3 (150-400); RDW Coefficient Variation 13.8 % (11.7-14.2); RDW Standard Deviation 44.6 fL (35.1-46.3); Red Blood Cell Count 4.66 M/mm3 (4.30-5.90); White Blood Cell Count 13.51 K/mm3 (4.00-11.30)
[2020-10-24 04:11] LABS: Anion Gap 3 mmol/L (6-16); Blood Urea Nitrogen 31 mg/dL (8-24); Bun/Creatinine Ratio 50.6 (12.0-20.0); CO2, Blood 35 mmol/L (21-32); Calcium, Blood 8.3 mg/dL (8.5-10.1); Chloride, Blood 96 mmol/L (98-108); Creatinine, Blood 0.61 mg/dL (0.60-1.20); Glomerular Filtration Rate >60 (60-); Glucose, Blood 202 mg/dL (70-99); Potassium, Blood 4.7 mmol/L (3.5-5.5); Sodium, Blood 134 mmol/L (136-145)
[2020-10-24 06:08] LABS: PCO2 Arterial 57.7 mmHg (35-45); PO2 Arterial 56.8 mmHg (80-100); pH Blood Arterial 7.41 (7.35-7.45)
--- NOTE | 2020-10-24 07:06 | NUR ---
SHIFT SUMMARY NO ACUTE CHANGES THIS SHIFT. PT REMAINED INTUBATED AND SEDATED T/O SHIFT, PRN FENTANYL AND ATIVAN ADMINISTERED FOR AGITATION, SEE SEP. PROPOFOL TITRATED OFF AND PRECEDEX STARTED FOR SBT THIS AM, PT TOLERATED WELL, PT REMAINS ON PS 7 PEEP 8 FIO2 40%, PRECEDEX INF @ 0.7mcg/kg/hr. PT AROUSES TO VERBAL STIMULI, FOLLOWS COMMANDS, REPORTS DESIRE TO BE EXTUBATED. MONITOR SHOWS SINUS RHYTHM, HR 70'S-80'S, BP STABLE. OGT IN PLACE INFUSING TF @ GOAL RATE OF 20ml/hr, RESIDUALS 120-200. ROTHMAN IN PLACE WITH GOOD OUTPUT. INSULIN GTT INF @ 11u/hr REPORT GIVEN TO FABIOLA SARABIA.
--- NOTE | 2020-10-24 09:10 | NUR ---
AM NOTE... ASSUMED CARE OF PT AT 0700, PT IS INTUBATED AND SEDATED CURRENTLY ON PRECEDEX RUNNING AT 0.7MCG/KG/HR. PT OPENS EYES TO LOUD VERBAL STIMULI AND WITH DRAWS FROM PAIN. PT WAS ABLE TO FOLLOW COMMANDS SUCH "SQUEEZE MY HAND" AND SHAKE/NOD HIS HEAD APPROPRIATELY TO QUESTIONS SUCH "ARE YOU IN PAIN." OR "DO YOU KNOW WHERE YOU ARE AT?". PT'S VENT SETTINGS ARE PS: 7/8 AND 40% FIO2 WITH O2 SATS>90%, RR EVEN AND UNLABORED AT 18-20. L/S COARSE RHONCHI WITH SCATTERED WHEEZES TO THE LEFT SIDE AND CLEAR T/O ON THE RIGHT, PT WAS TURNED ONTO HIS LEFT SIDE DURING THIS ASSESSMENT. PT IS IN NSR IN THE 80'S-90'S, STABLE BP. PT HAS 2+ PITTING EDEMA TO HIS BLE AND 1+ TO HIS BUE WELL DEPENDENT SCROTAL EDEMA. PT HAS TUBE FEEDS RUNNING AT GOAL OF 20MLS/HR WITH 30MLS/Q4 OF H2O FLUSHES, DURING ASSESSMENT PT'S RESIDUALS WERE CHECKED AND FOUND TO HAVE 400MLS OF PEREZ/BROWN/YELLOW BILE, 100MLS OF THE RESIDUAL WAS RESTORED AND PT WAS GIVEN HIS AM MEDICATIONS PER OG TUBE, THE TOTAL OF THE MEDICATIONS CAME TO 150MLS INCLUDING FLUSHES AFTER THE MEDICATION WAS INSTILLED. PROVIDER AND CHARGE NURSE AWARE. PT'S ROTHMAN IS PATENT AND DRAINING CLEAR YELLOW URINE TO GRAVITY. AT 0830 PT BECAME VERY ANXIOUS AND THRASHING AROUND ON THE BED ATTEMPTING TO PULL THE ET TUBE. THE PROPOFOL WAS TURNED BACK ON TO 20MCG/KG/MIN, THIS HELPED THE PT RETURN TO A MORE COMFORTABLE STATE, AT APROX 0840 PT'S O2 SATS BEGAN TO DROP DOWN INTO 87-89%, RT WAS CALLED AND THE PT WAS PUT BACK ON TO AC MODE AT 16/550/8/40% WITH O2 SATS>90%. WILL CONTINUE TO MONITOR.
--- NOTE | 2020-10-24 18:38 | NUR ---
SHIFT SUMMARY... NO ACUTE NEGATIVE CHANGES NOTED THIS SHIFT. PT'S VS HAVE BEEN STABLE. PT CONTINUES TO BE ON THE VENT ON PRESSURE SUPPORT MODE OF 8/8 AND 40% WITH O2 SATS >90%. PT IS ON PRECEDEX AT 0.7MCG/KG/HR AND PROPOFOL OF 30MCG/KG/MIN. PT BECOMES AGITATED WITH ORAL CARE BUT OTHERWISE IS COMFORTABLE. ROTHMAN IS PATENT AND DRAINING GREEN/BROWN URINE TO GRAVITY. NO BM THIS SHIFT OR SINCE ADMIT, BOWEL CARE STARTED TODAY. TF SETTINGS WERE CHANGED TO 45MLS/HR LAST RESIDUAL CHECK FOUND 175MLS OF FORMULA MIXED WITH BILE, DR. VALENZUELA NOTIFIED, THIS RATE IS OKAY WITH HER FOR NOW LONG RESIDUALS ARE <200MLS. INSULIN DRIP CONTINUES TO RUN AT 6UNITS/HR. PT HAS ALSO BEEN STARTED ON SUB Q INSULIN Q6 HRS WITH THE GOAL TO TITRATE OFF THE INSULIN DRIP. WILL CONTINUE TO MONITOR UNTIL REPORT IS GIVEN TO ONCOMING RN.
--- NOTE | 2020-10-24 23:23 | NUR ---
ASSUMED CARE AT 1900 PT LYING IN BED INTUBATED WITH VENT SETTINGS SPONT PS 8/8, FIO2 45%, TV 550-650; SMALL AMOUNT OF ORAL SECREATIONS NOTED. PT REACTIVE TO PAINFUL STIMULI AND ORAL CARE; PROPOFOL INFUSING AT 30MCG/KG/MIN; PRECEDEX INFUSING AT 0.7MCG/KG/HR; GAG AND COUGH PRESENT. AFIBRILE. HR 70-90'S. SBP 150-160. HYPOACTIVE BT AND MODERATE DISTENDED ABD. SEE NEXT NOTE REGARDING PIVOT TF AND RESIDUALS. RECTAL TUBE AND ROTHMAN IN PLACE AND DRAINING TO GRAVITY. INSULIN GTT INFUSING AT 1 UNIT/HR, CBG Q1HR. SEE SHIFT ASSESSMENT FOR FULL ASSESSMENT.
--- NOTE | 2020-10-24 23:29 | NUR ---
PIVOT AND RESIDUALS PIVOT ORIGINALLY INFUSING AT 45ML/HR WITH 30ML WATER FLUSHES Q4HR. RESIDUALS FIRST 500ML; RESIDUAL PROTOCOL INITIATED. 250ML DISCARDED, 250ML REINSTALLED, TF HELD FOR ONE HOUR. AFTER ONE HOUR, RESIDUALS CHECKED AGAIN, 350ML NOTED. DISCARDED ALL RESIDUAL AND RESTARTED PIVOT AT 24ML/HR WITH 30ML WATER FLUSHES Q4HR. DR AMAYA CALLED AT 2155, NO NEW ORDERS PROVIDED. WILL CHECK RESIDUALS AT 0000.
[2020-10-25 04:17] LABS: Base Excess Venous 11.2 mmol/L; Bicarbonate Venous 33.1 mmol/L (24.0-30.0); PCO2 Venous 50.7 mmHg (38-42); PO2 Venous 75.6 mmHg (38-42); pH Blood Venous 7.45 (7.34-7.37)
[2020-10-25 04:32] LABS: BASOPHILS ABSOLUTE AUTO 0.01 K/mm3 (0.00-0.23); BASOPHILS PERCENT AUTO 0 % (0-2); EOSINOPHILS ABSOLUTE AUTO 0.02 K/mm3 (0.00-0.68); EOSINOPHILS PERCENT AUTO 0 % (0-6); Hematocrit 42.9 % (37.0-53.0); Hemoglobin 13.7 g/dL (13.5-17.5); IMMATURE GRAN ABSOLUTE AUTO 0.26 K/mm3 (0.00-0.10); IMMATURE GRAN PERCENT AUTO 2 % (0-1); LYMPHOCYTES ABSOLUTE AUTO 1.85 K/mm3 (0.84-5.20); LYMPHOCYTES PERCENT AUTO 17 % (21-46); MONOCYTES ABSOLUTE AUTO 0.79 K/mm3 (0.16-1.47); MONOCYTES PERCENT AUTO 7 % (4-13); Mean Corpuscular HGB 28.3 pg (26.0-34.0); Mean Corpuscular HGB Conc 31.9 g/dL (31.5-36.5); Mean Corpuscular Volume 89 fL (80-100); Mean Platelet Volume 9.6 fL (9.1-12.4); NEUTROPHILS ABSOLUTE AUTO 7.91 K/mm3 (1.96-9.15); NEUTROPHILS PERCENT AUTO 73 % (41-73); Platelet Count 192 K/mm3 (150-400); RDW Coefficient Variation 13.7 % (11.7-14.2); RDW Standard Deviation 44.4 fL (35.1-46.3); Red Blood Cell Count 4.84 M/mm3 (4.30-5.90); White Blood Cell Count 10.84 K/mm3 (4.00-11.30)
[2020-10-25 04:50] LABS: Anion Gap 3 mmol/L (6-16); Blood Urea Nitrogen 25 mg/dL (8-24); Bun/Creatinine Ratio 50.3 (12.0-20.0); CO2, Blood 34 mmol/L (21-32); Calcium, Blood 8.2 mg/dL (8.5-10.1); Chloride, Blood 100 mmol/L (98-108); Glomerular Filtration Rate >60 (60-); Glucose, Blood 189 mg/dL (70-99); Potassium, Blood 4.7 mmol/L (3.5-5.5); Sodium, Blood 137 mmol/L (136-145)
--- NOTE | 2020-10-25 06:13 | NUR ---
END OF SHIFT SUMMARY PT CONT TO BE INTUBATED WITH VENT SETTINGS 8, FIO2 45%, TV 550-650; MINIMAL ORAL SECREATIONS NOTED. PT WAS ABLE TO OPEN EYES AND ANSWER YES/NO QUESTIONS, COMMUNICATION BOARD ALSO USED; PT WOKE UP NOT KNOWING WHERE HE WAS, WHAT TIME IT WAS, AND POINTED TO SCARED, FEARFUL, AND SAD ON COMMUNICATION BOARD; PT CONSOULABLE AND NOW BACK TO COMFORTABLY RESTING. AFEBRILE. HR 70'S. SBP 150-160. PIVOT INFUSING VIA OG; SEE PREVIOUS NOTE ABOUT BEGINING OF SHIFT RESIDUALS; MIDNIGHT RESIDUALS 150ML; 0500 RESIDUALS 350ML, 250ML REINSTILLED, 100ML DISCARDED AND TF ON HOLD FOR 1HR; RESIDUALS NOW 250ML, TF STARTED AGAIN AT 24ML/HR WITH 30ML WATER FLUSHES Q4HR. ROTHMAN PATENT AND DRAINING TO GRAVITY. RECTAL TUBE IN PLACE WITH NO OUTPUT. PROPOFOL INFUSING AT 35MCG/KG/MIN. PRECEDEX INFUSING AT 0.7MCG/KG/HR. INSULIN INFUSING AT 6UNITS/HR ALL NIGHT, GLUCOSE 175-201. WILL REPORT TO AM RN WHEN AVAILABLE.
--- NOTE | 2020-10-25 08:54 | NUR ---
ASSUMED CARE REPORT FROM RON SARABIA. PT INTUBATED AND SEDATED. VENT SETTINGS SPONT 8/8 40%. PROPOFOL AND PRECEDEX GTT FOR SEDATION. PT OPENS EYES SPONTANEOUSLY. DOES NOT FOLLOW COMMANDS. MAEW. LUNGS DIMINISHED IN BASES. SMALL AMOUNT OF THICK, PEREZ SECRETIONS THROUGH ETT. COUGH/GAG/SWALLOW REFLEX PRESENT. ABD ROUND, FIRM, HYPOACTIVE BT. RESIDUALS 280 ML THIS AM, REFED 250 ML. TUBE FEEDS CONTINUE AT 24 ML/HR. WILL MONITOR. RECTAL TUBE REMOVED. SUPPOSITORY PLACED FOR BOWEL CARE. ROTHMAN PATENT, DRAINING YELLOW/GREEN URINE c SEDIMENT TO GRAVITY. PICC TO RUE, DRESSING C/D/I, POWERGLIDE TO LUE. VSS. WILL CONTINUE TO MONITOR.
--- NOTE | 2020-10-25 16:10 | NUR ---
EXTUBATION SEDATION PLACED ON STANDBY. PT FOLLOWING DIRECTIONS. NODS TO YES/NO QUESTIONS. COUGH/GAG/SWALLOW REFLEX PRESENT. MODERATE PEREZ SECRETIONS. LUNGS DIMINISHED IN BASES. VENT SETTINGS SPONT 5/5, 40%. PT EXTUBATED AT 1536, RESTRAINTS REMOVED. PT PLACED ON 4L VIA NC. TOLERATING WELL. ABLE TO COUGH SECRETIONS, NEEDS ASSISTANCE zaida CRUZ.
--- NOTE | 2020-10-25 17:45 | NUR ---
SHIFT SUMMARY PT EXTUBATED THIS SHIFT, SEE NOTE. TOLERATED WELL. 4L VIA NC, O2 SATS >91%. LUNGS DIMINISHED IN BASES. PRODUCTIVE COUGH, MODERATE, PEREZ SPUTUM, PT ABLE TO USE YANKUER TO SUCTION. PT SPEAKING IN FULL SENTANCES. PT P/W/D. PT PASSED BEDSIDE SWALLOW EVAL. PLAN TO OBSERVE PO INTAKE OVERNIGHT TO AVOID ASPIRATION. ALSO PLAN TO USE BIPAP PRN DURING NOC IF TOLERATED. ABD ROUND, DISTENDED. PT ATTEMPTED TO HAVE BM ON BEDPAN TODAY s RESULTS. ROTHMAN PATENT, DRAINING YELLOW/GREEN URINE TO GRAVITY. PT c GENERALIZED WEAKNESS. PT/OT ORDERED. INSULIN GTT CONTINUES. SS INCREASED TO HIGH. VSS. WILL CONTINUE TO MONITOR UNTIL REPORT TO ONCOMING NURSE.
--- NOTE | 2020-10-25 23:32 | NUR ---
ASSUMED CARE AT 1900 PT LYING IN BED, ALERT/ORIENTED X4 AND ABLE TO MAKE HIS NEEDS KNOWN. PT ABLE TO ASSIST WITH REPOSITIONING BUT VERY WEAK. SPO2 >95%ON 4L NC; PT STEPHANIE TO USE JANCOUR ON HIS OWN; MODERATE AMOUNT OF THICK PEREZ WHITE SECREATIONS NOTED. AFIBRILE. HR 90-100. SBP 130-160. 2 MED-LARGE BM'S SO FAR THIS SHIFT. ROTHMAN PATENT AND DRAINING TO GRAVITY. TKO INFUSING VIA PICC TO TREVOR. LAST GLUCOSE 120, INSULIN OFF, WILL RECHECK AT 0000. SEE SHIFT ASSESSMENT FOR FULL ASSESSMENT.
--- NOTE | 2020-10-26 05:16 | NUR ---
END OF SHIFT SUMMARY PT SLEPT FOR ABOUT AN HOUR, IS ALERT/ORIENTED X4, AND ABLE TO MAKE HIS NEEDS KNOWN. PT IS WEAK BUT ASSIST WITH REPOSITIONING; PRN TYLENOL GIVEN ONCE DUE TO HEADACHE AND HELPFUL. AFEBRILE. SPO2 >90% ON 4L EVEN WHILE SLEEPING; PRODUCTIVE COUGH WITH THICK PEREZ/WHITE/YELLOW SPUTUM NOTED; PT USES JANCOUR FOR SECTIONS ON HIS OWN. HR 90-100. SBP 150-160'S. THREE BM THIS SHIFT. ROTHMAN IN PLACE AND DRAINING TO GRAVITY. INSULIN GTT OFF ALL SHIFT. PT TOLERATING SIPS OF WATER WELL AND TAKING PO MEDS ONE AT A TIME. TKO INFUSING VIA PICC TO TREVOR. WILL REPORT TO AM RN WHEN AVAILABLE.
[2020-10-26 05:49] LABS: PCO2 Arterial 49.5 mmHg (35-45); PO2 Arterial 61.7 mmHg (80-100); pH Blood Arterial 7.46 (7.35-7.45)
--- NOTE | 2020-10-26 08:00 | NUR ---
ASSUMED CARE REPORT FROM RON SARABIA. PT RESTING IN BED. A&OX 4. ANSWERS QUESTIONS APPROPRIATELY, FOLLOWS COMMANDS. PT C/O GENERALIZED ABD PAIN. PT STARTED ON BOWEL CARE TWO NOC SHIFTS AGO, NOC RN REPORTS 3 BMS LAST NOC. ABD ROUND, SOFT, NON TENDER. BT X 4. LUNGS DIMINISHED IN BASES. PRODUCTIVE COUGH c DECREASED SECRETIONS SINCE YESTERDAY. PT ON 2L VIA NC, O2 SATS >91%. ROTHMAN REMOVED. PT c GENERALIZED WEAKNESS, PT/OT CONSULT PENDING. PICC TO RUE, POWERGLIDE TO LUE, DRESSINGS C/D/I. BP STABLE. WILL CONTINUE TO MONITOR UNTIL REPORT TO ONCOMING NURSE.
--- NOTE | 2020-10-26 12:39 | NUR ---
PT TRANSFERRED TO 304. REPORT TO MAYA SARABIA. ALL BELONGINGS c PT.
--- NOTE | 2020-10-26 13:07 | NUR ---
ASSUMED CARE OF PT AT 1241 UPON HIS ARRIVAL FROM ICU. HE IS ALERT AND ORIENTED, COOPERATIVE. DENIES PAIN AT THIS TIME. SUCTION SET UP FOR PT TO SELF SUCTION SECRETIONS. CALLED PT'S BROTHER GILBERTO, NOTIFIED HIM OF PT'S TRANSFER TO MEDICAL FLOOR.
--- NOTE | 2020-10-26 14:55 | NUR ---
Referal to [facility] advance directive program for pt to review an advance directive with his primary care provider.
--- NOTE | 2020-10-26 18:23 | NUR ---
SHIFT SUMMARY: NO ACUTE EVENTS SINCE TRANSFER. DENIED PAIN. CURRENTLY ON 2 L/MIN NC, USING SUCTION INDEPENDENTLY FOR SECRETIONS. USING URINAL WITH ASSISTANCE. THIS AUTHOR ASKED VICE PRESIDENT IN[employer]OR RELATIONS FOR BIGGER BED FOR THIS PT HE HAS VERY LITTLE ROOM FOR TURNING AND TOILETING. TOLERTED FULL LIQUID DIET FOR DINNER.
--- NOTE | 2020-10-27 06:13 | NUR ---
40 year old MAle here for 9 days was ICU transfer yesterday. PT had been on a vent in ICU & he said he was extubated Sat PM. He is on 2 l nc at rest, self suctions to maintain airway. Tobacco smoker, PT says he plans to stop smoking. He needs assist for toileting, incontinent x 1 or urine. He is on sliding scale insulin & no coverage indicated. no out of bed this shift PT weak deconditioned. ABD obese distended with tympanic bowel sounds.
--- NOTE | 2020-10-27 07:19 | NUR ---
PATIENT GAVE PERMISSION TO GIVE CARE ON 10/27/20.
--- NOTE | 2020-10-27 18:31 | NUR ---
PATIENT IS A&O X4, HAS BEEN SELF SUCTIONING THROUGHOUT THE DAY NEEDED. PATIENT WAS CONTINENT TWICE WITH ASSISTANCE OF THE URINAL. PATIENT HAS BEEN WORKING WITH PT/OT AND HAS RECCOMENDED THAT HE BE DISCHARGED TO A SNF FOR REHAB. PATIENT NAUSEATED THIS MORNING ZOFRAN GIVEN FOR RELIEF. HES ON 2 LITERS O2 VIA NC, VSS. MEPILEX TO COCCYX CHANGED TODAY, APPLIED DUE TO REDNESS. PATIENT CALM AND COOPERATIVE WITH CARE AND ABLE TO MAKE NEEDS KNOWN.
--- NOTE | 2020-10-28 04:45 | NUR ---
PT continues on 2 l oxygen with sats greater than 90%. Cough productive PT self suctions to maintain airway. More alert sat at bedside with PT. Not OOB yet. Appetite improving advanced to soft diet. Vivian saw PT for food preferances offered glycernia did not drink any.
--- NOTE | 2020-10-28 17:36 | NUR ---
PATIENT HAD A GOOD DAY. UP IN CHAIR MOST OF THE DAY. 2 MAX ASSIST WITH FWW AND GAIT BELT FOR TRANSFER. 2LO2 TO MAINTAIN SATS, LESS SOB TODAY. TOLERATING ADA DIET, ACHS BLOOD SUGARS. MEPILEX TO COCCYX FOR PROTECTION. DENIES ANY PAIN THIS SHIFT. PLEASANT AND COOPERATIVE WITH CARE. PLAN IS TO DC TOMORROW TO [facility]. PICC LINE TO [facility] AND RIGO.
--- NOTE | 2020-10-29 03:54 | NUR ---
PT continues to make improvements up to bedside chair for a long period. PT needs 2 max assist FWW & GB to stand from recliner & he is supposed to dc to SNF for rehab post resp failure with ventilation. His oxygen sats are stable on 2 l nc & he self suctions to maintain airway. Large BM on bedpan PT tolerating diet & increasing activity. PT does have pressure ulcer stage 2 on sacral area which was cleansed & fresh foam dressing applied. BG was 209 recieved 4 units regular insulin. Pain mild controlled with prn tylenol 650 mg po x 1 .
[2020-10-29 13:04] LABS: Influenza A, PCR NEGATIVE (NEGATIVE); Influenza B, PCR NEGATIVE (NEGATIVE); Resp Syncytial Virus, PCR NEGATIVE (NEGATIVE); SARS-Cov-2 (COVID-19) PCR, MMC NEGATIVE (NEGATIVE)
[2020-10-29] MEDS ORDERED: AMLO10 PO (13:34)
[2020-10-29] MEDS ORDERED: PRED20 PO (13:34)
--- NOTE | 2020-10-29 15:14 | NUR ---
REPORT CALLED TO RN AT [facility]
== END 2020-10-29 17:13 | DRG 870 ==
LOC: ER 17:52 → ICUW 21:43 → PCU 21:43 → ICUW 10-19 06:57 → MEDS 10-26 12:41
PROVIDERS: Hospitalist; Internal Medicine Critical Care Medicine; Internal Medicine Pulmonary Disease; Physician Assistant; ADMIT Family Medicine
PROC: 5A09357 Assistance with Respiratory Ventilation, Less than 24 Consecutive Hours, Continuous Positive Airway Pressure (ICD-10-PCS; 2020-10-18)
PROC: 0BH18EZ Insertion of Endotracheal Airway into Trachea, Via Natural or Artificial Opening Endoscopic (ICD-10-PCS; principal; 2020-10-19)
PROC: 5A1955Z Respiratory Ventilation, Greater than 96 Consecutive Hours (ICD-10-PCS; 2020-10-19)
PROC: 02HV33Z Insertion of Infusion Device into Superior Vena Cava, Percutaneous Approach (ICD-10-PCS; 2020-10-23)
DX: A41.9 Sepsis, unspecified organism (principal); J96.01 Acute respiratory failure with hypoxia; J18.9 Pneumonia, unspecified organism; J96.02 Acute respiratory failure with hypercapnia; J44.1 Chronic obstructive pulmonary disease with (acute) exacerbation; E87.1 Hypo-osmolality and hyponatremia; J44.0 Chronic obstructive pulmonary disease with (acute) lower respiratory infection; E66.2 Morbid (severe) obesity with alveolar hypoventilation; Z68.43 Body mass index [BMI] 50.0-59.9, adult; Z20.822 Contact with and (suspected) exposure to COVID-19; R65.20 Severe sepsis without septic shock; I10 Essential (primary) hypertension; F41.9 Anxiety disorder, unspecified; Z71.6 Tobacco abuse counseling; Z90.49 Acquired absence of other specified parts of digestive tract; Z79.899 Other long term (current) drug therapy; F17.210 Nicotine dependence, cigarettes, uncomplicated; Z88.0 Allergy status to penicillin; E11.9 Type 2 diabetes mellitus without complications; F32.9 Major depressive disorder, single episode, unspecified; M17.0 Bilateral primary osteoarthritis of knee; K21.9 Gastro-esophageal reflux disease without esophagitis; Z78.1 Physical restraint status
CPT/HCPCS: 0241U; 31500; 36415; 36569; 36600; 51702; 71045; 80048; 80053; 80069; 81001; 81003; 82803; 82947; 83605; 83880; 84145; 84478; 84484; 85025; 85610; 85730; 87040; 87070; 87086; 87205; 93005; 93010; 94002; 94003; 94640; 94644; 94645; 94660; 94760; 94762; 96365; 96375; 97110; 97163; 97166; 97530; 97535; 99285-25; A9270; C1751; C8929; C9113; J0330; J0360; J0456; J0696; J1100; J1650; J1815; J1940; J2060; J2250; J2405; J2704; J2765; J2920; J2930; J3010; J3475; J7030; J7040; J7050; J7512; Q9957